=== PATIENT | male | born 1960 | race Caucasian/White ===

== ENCOUNTER → 2017-02-18 | Outpatient (CLI) | payer OTHER ==
[~2017-02-18] MED LIST: NA BICARBONATE 50 MEQ/50 ML VIAL ONE
== END ==
LOC: FIMAGING 13:35
PROC: 0W993ZZ Drainage of Right Pleural Cavity, Percutaneous Approach (ICD-10-PCS; principal; 2017-02-18)
DX: J90 Pleural effusion, not elsewhere classified (principal)

== ENCOUNTER → 2017-04-11 | Outpatient (CLI) | payer OTHER ==
[~2017-04-11] MED LIST changes: +LIDOCAINE 1% 300 MG/30 ML SDV ONE; -NA BICARBONATE 50 MEQ/50 ML VIAL ONE
== END ==
LOC: FIMAGING 13:48
PROC: 0W993ZZ Drainage of Right Pleural Cavity, Percutaneous Approach (ICD-10-PCS; principal; 2017-04-11)
DX: J90 Pleural effusion, not elsewhere classified (principal); Z85.72 Personal history of non-Hodgkin lymphomas

== ENCOUNTER → 2017-04-18 | Outpatient (CLI) | payer OTHER ==
[~2017-04-18] MED LIST changes: +GADOBUTROL 10 ML VIAL IVP ONE; -LIDOCAINE 1% 300 MG/30 ML SDV ONE
== END ==
LOC: FIMAGING 14:25
DX: M40.204 Unspecified kyphosis, thoracic region (principal); G62.9 Polyneuropathy, unspecified; C85.90 Non-Hodgkin lymphoma, unspecified, unspecified site; J90 Pleural effusion, not elsewhere classified
CPT/HCPCS: A9585

== ENCOUNTER → 2017-04-26 | Outpatient (CLI) | payer OTHER | LOC: FIMAGING 13:40 | PROC: 0W993ZZ Drainage of Right Pleural Cavity, Percutaneous Approach (ICD-10-PCS; principal; 2017-04-26) | DX: J90 Pleural effusion, not elsewhere classified (principal) ==

== ENCOUNTER → 2017-05-17 | Outpatient (CLI) | payer OTHER ==
[~2017-05-17] MED LIST changes: -GADOBUTROL 10 ML VIAL IVP ONE; +LIDOCAINE 1% 300 MG/30 ML SDV ONE
== END ==
LOC: FIMAGING 10:34
PROC: 0W993ZZ Drainage of Right Pleural Cavity, Percutaneous Approach (ICD-10-PCS; principal; 2017-05-17)
DX: J90 Pleural effusion, not elsewhere classified (principal)

== ENCOUNTER → 2017-06-13 | Outpatient (CLI) | payer OTHER | LOC: FIMAGING 12:24 | PROC: 0W993ZZ Drainage of Right Pleural Cavity, Percutaneous Approach (ICD-10-PCS; principal; 2017-06-13) ==

== ENCOUNTER → 2017-08-22 | Outpatient (CLI) | payer OTHER ==
[2017-08-22 16:03] LABS: LD, PLEURAL FLUID 338 IU/L
== END ==
LOC: FIMAGING 11:52
PROC: 0W993ZX Drainage of Right Pleural Cavity, Percutaneous Approach, Diagnostic (ICD-10-PCS; principal; 2017-08-22)
DX: J90 Pleural effusion, not elsewhere classified (principal)

== ENCOUNTER 2017-09-10 10:04 | Observation (INO) | payer OTHER ==
--- NOTE | 2017-09-10 10:34 | EDPHY ---
HPI/HX/ROS/PE/MDM Narrative: CHIEF COMPLAINT: Constipation, abdominal discomfort HISTORY OF PRESENT ILLNESS: This patient is a 57 year old male with complex past medical history complaining of generalized abdominal pain and constipation worsening over the last few days, which has been chronic over the last two months. Three weeks ago , he was placed on new diuretic (Torsemide, formerly on Lasix) for pulmonary hypertension and congestive heart failure. 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 After one week of his new diuretic, he had a right heart catheterization and esophageal echocardiogram 08/19/17. He is also followed by [facility] every six months for evaluation of his pulmonary hypertension. He has pleural effusions and repeated thoracentesis procedures every few months to drain these. The patient has had difficulty with constipation since around Labor Day of this year. This past weekend, he felt particularly poorly. He tried Metamucil and Zaira-lax with no resolution of symptoms. Yesterday, he saw his primary care physician in [place] for abdominal discomfort and inability to urinate. CT at that time showed moderate amount of stool in the splenic fixture but no evidence of obstruction. He also visited his urologist, who drained 1000cc of urine and thought this may help relieve his constipation. He tried a suppository and Fleet enema with no relief. Provider at that time stated if these did not relieve symptoms, he should present to the emergency department for further evaluation. His most recent colonoscopy was around six years ago. Currently, he complains of generalized abdominal pain. He endorses nausea, though this is currently resolved. Endorses increased shortness of breath, feels this is related to his pleural effusion. He has not vomited. He denies fever, chills, chest pain, palpitations, vomiting, diarrhea, dysuria, headache, lightheadedness. He takes a daily aspirin but is not otherwise anticoagulated. He denies personal history of clotting disorders, DVTs, or pulmonary embolus. Of note, he began taking Prednisone 09/05/17. REVIEW OF SYSTEMS: Aside from elements discussed in the HPI, a comprehensive 10-point review of systems was reviewed and is negative. PAST MEDICAL HISTORY: 1. Lupus (diagnosed last week) 2. Congestive heart failure 3. Seizure disorder 4. Pulmonary hypertension (Generally on 3L home oxygen) 5. Neuropathic bladder 6. Transurethral incision of the prostate (TUIP) 7. 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 8. Splenectomy (History of Hodgkin's Lymphoma 22 years ago) 9. Cholecystectomy 10. Chronic hyponatremia (Usually around 120-122). SOCIAL HISTORY: Works at [employer]. . at bedside. Lives in [place]. VITAL SIGNS: Reviewed by me GENERAL: Well-developed, well-nourished, resting comfortably in no respiratory distress. HEENT: Atraumatic. Eyes: No icterus, no injection. Mouth: moist mucous membranes. No erythema or lesions. Neck: supple with no adenopathy. LUNGS: Diminished breath sounds in the right base. CARDIAC: S4 gallop. Regular rate and rhythm, no rubs or murmurs. ABDOMEN: Mildly tender, mildly distended. Soft. BACK: No CVA tenderness. EXTREMITIES: No trauma. No edema. Range of motion is normal throughout. NEURO: Alert and oriented, grossly nonfocal. SKIN: Warm and dry, no rash. PSYCHIATRIC: Normal mentation, no agitation. Portions of this note were transcribed by a medical center representative. I personally performed a history, physical exam, medical decision making, and confirmed accuracy of information the transcribed note. ED Course: 57 year old male presents with abdominal discomfort, constipation, and worsening pleural effusion symptoms. On exam, his abdomen is mildly tender and distended. There are diminished breath sounds in the right lung base. IV established. Plan for labs including CBC, BMP, Troponin, lipase, liver, and UA. Plan for EKG and chest x-ray. Chest x-ray shows moderate right pleural effusion, reaccumulated since 08/22/2017 , when the patient had his most recent thoracentesis. Patient's sodium is very low at 118. He is chronically hyponatremic but this is low for him. Plan to admit. Call was placed to IR to discuss thoracentesis. Dr. Gant is currently in a meeting. 12:30 Spoke with hospitalist service. Dr. Rousseau accepts admission for hyponatremia, pleural effusion, and constipation. MDM: Differential diagnoses for the patient's symptom complex was considered including but not limited to worsening congestive heart failure, fluid overload , constipation, bowel obstruction, impaction, neurogenic bladder, urinary retention, urinary tract infection. - Data Points Imaging Results: Imaging Impressions Chest X-Ray 09/10/17 11:23 Impression: Postoperative changes with a prior median sternotomy, cardiomegaly and pulmonary vascular congestion, a tiny posterior left pleural effusion, and a moderate right pleural effusion (which has reaccumulated since 08/22/2017, at which time the patient had a thoracentesis). Laboratory Results: Laboratory Results 09/10/17 10:36 09/10/17 10:36 09/10/17 09/10/17 09/10/17 12:21 10:36 10:36 WBC 6.39 10^3/uL 10^3/uL (3.80-9.50) RBC 3.04 10^6/uL L 10^6/uL (4.40-6.38) Hgb 10.1 g/dL L g/dL (13.7-17.5) Hct 27.2 % L % (40.0-51.0) MCV 89.5 fL fL (81.5-99.8) MCH 33.2 pg pg (27.9-34.1) MCHC 37.1 g/dL H g/dL (32.4-36.7) RDW 15.3 % H % (11.5-15.2) Plt Count 513 10^3/uL H 10^3/uL (150-400) MPV 8.9 fL fL (8.7-11.7) Neut % (Auto) 72.8 % % (39.3-74.2) Lymph % (Auto) 11.7 % L % (15.0-45.0) [place] % (Auto) 13.6 % H % (4.5-13.0) Eos % (Auto) 0.3 % L % (0.6-7.6) Baso % (Auto) 0.8 % % (0.3-1.7) Nucleat RBC Rel Count 1.6 % H % (0.0-0.2) Absolute Neuts (auto) 4.65 10^3/uL 10^3/uL (1.70-6.50) Absolute Lymphs (auto) 0.75 10^3/uL L 10^3/uL (1.00-3.00) Absolute Monos (auto) 0.87 10^3/uL H 10^3/uL (0.30-0.80) Absolute Eos (auto) 0.02 10^3/uL L 10^3/uL (0.03-0.40) Absolute Basos (auto) 0.05 10^3/uL 10^3/uL (0.02-0.10) Absolute Nucleated RBC 0.10 10^3/uL H 10^3/uL (0-0.01) Immature Gran % 0.8 % % (0.0-1.1) Immature Gran # 0.05 10^3/uL 10^3/uL (0.00-0.10) Platelet Estimate INCREASED H (ADEQ) Microcytic Cells 1+ H Spherocytes 1+ H Echinocytes 1+ H Smear Review By Pending Sodium 118 mEq/L L* mEq/L (134-144) Potassium 3.7 mEq/L mEq/L (3.5-5.2) Chloride 80 mEq/L L mEq/L (97-110) Carbon Dioxide 29 mEq/l mEq/l (22-31) Anion Gap 9 mEq/L mEq/L (8-16) BUN 14 mg/dL mg/dL (7-23) Creatinine 0.7 mg/dL mg/dL (0.7-1.3) Estimated GFR > 60 Glucose 96 mg/dL mg/dL (70-100) Calcium 8.8 mg/dL mg/dL (8.5-10.4) Total Bilirubin 0.5 mg/dL mg/dL (0.1-1.4) Conjugated Bilirubin 0.3 mg/dL mg/dL (0.0-0.5) Unconjugated Bilirubin 0.2 mg/dL mg/dL (0.0-1.1) AST 53 IU/L IU/L (17-59) ALT 74 IU/L H IU/L (21-72) Alkaline Phosphatase 235 IU/L H IU/L (38-126) Troponin I < 0.012 ng/mL ng/mL (0.000-0.034) Total Protein 6.5 g/dL g/dL (6.3-8.2) Albumin 3.7 g/dL g/dL (3.5-5.0) Lipase 35 IU/L IU/L (23-300) Urine Color YELLOW Urine Appearance CLEAR Urine pH 6.0 (5.0-7.5) Ur Specific [place] 1.015 (1.002-1.030) Urine Protein NEGATIVE (NEGATIVE) Urine Ketones TRACE H (NEGATIVE) Urine Blood 3+ H (NEGATIVE) Urine Nitrate NEGATIVE (NEGATIVE) Urine Bilirubin NEGATIVE (NEGATIVE) Urine Urobilinogen NEGATIVE EU EU (0.2-1.0) Ur Leukocyte Esterase TRACE H (NEGATIVE) Urine RBC 50-182 /hpf H /hpf (0-3) Urine WBC 25-50 /hpf H /hpf (0-3) Ur Epithelial Cells TRACE /lpf /lpf (NONE-1+) Urine Bacteria TRACE /hpf H /hpf (NONE SEEN) Urine Glucose NEGATIVE (NEGATIVE) General Time Seen by Provider: 09/10/17 10:33 Initial Vital Signs: Initial Vital Signs Temperature (C) 36.9 C 09/10/17 10:17 Heart Rate 83 09/10/17 10:17 Respiratory Rate 18 09/10/17 10:17 Blood Pressure 98/55 L 09/10/17 10:17 O2 Sat (%) 95 09/10/17 10:17 O2 Delivery Mode Nasal Cannula O2 (L/minute) 3 Allergies/Adverse Reactions: No Known Allergies Allergy (Unverified 09/10/17 10:12) Home Medications: Medication Instructions Recorded Alfuzosin HCl [Alfuzosin HCl ER] 10 mg PO HS 09/10/17 Ambrisentan [Letairis] 5 mg PO DAILY 09/10/17 Aspirin [Aspirin 325 mg (*)] 325 mg PO DAILY 09/10/17 Bisacodyl [Dulcolax] 10 mg RC DAILY PRN 09/10/17 Cyanocobalamin [Vitamin B12 (*)] 1,000 mcg PO DAILY 09/10/17 FLUTICASONE/SALMETEROL [ADVAIR HFA 2 puffs IH BID 09/10/17 230-21 MCG INHALER] FLUoxetine [Prozac 10 MG (*)] 10 mg PO DAILY 09/10/17 Folic Acid [Folic Acid 1 MG (*)] 1 mg PO DAILY 09/10/17 Gabapentin [Neurontin 100 MG (*)] 100 mg PO DAILY 09/10/17 Gabapentin [Neurontin 300 MG (*)] 300 mg PO HS 09/10/17 Levothyroxine [Synthroid 150 mcg 150 mcg PO DAILY06 09/10/17 (*)] Losartan Potassium [Cozaar 50 mg 100 mg PO HS 09/10/17 (*)] Metolazone 2.5 mg PO Q3D PRN 09/10/17 Omeprazole [Prilosec 20 mg] 20 mg PO DAILY 09/10/17 Phenytoin Sodium Extended 200 mg PO BID 09/10/17 [Dilantin (*)] Potassium Cl [Klor-Con 20 meq (*)] 20 meq PO BID 09/10/17 Pravastatin Sodium [Pravachol] 10 mg PO DAILY 09/10/17 Sildenafil Citrate [Revatio 20 MG 20 mg PO TIDMEAL 09/10/17 (*)] Torsemide [Demadex] 40 mg PO DAILY PRN 09/10/17 Zolpidem Tartrate [Ambien 5MG (*)] 5 - 10 mg PO HS PRN 09/10/17 amLODIPine BESYLATE [Norvasc 5 mg 5 mg PO DAILY 09/10/17 (*)] predniSONE [predniSONE] 30 mg PO DAILY 09/10/17 Departure - Departure Disposition: [facility] Inpatient Acute Clinical Impression: Hyponatremia, Pleural effusion, right Constipation Qualifiers: Constipation type: unspecified constipation type Qualified Code(s): K59.00 - Constipation, unspecified Condition: Fair Report Scribed for: Sloane Osorio Report Scribed by: Kell Rudd Date of Report: 09/10/17 Time of Report: 10:34
[2017-09-10 11:34] LABS: % IMMATURE GRANULYOCYTES 0.8 % (0.0-1.1); ABSOLUTE IMMATURE GRANULOCYTES 0.05 10^3/uL (0.00-0.10); ADD DIFF? NO; ADD MORPH? YES; ADD SCAN? NO; ATYPICAL LYMPHOCYTE FLAG 10 (0-99); FRAGMENT RBC FLAG 0 (0-99); HEMATOCRIT 27.2 % (40.0-51.0); HEMOGLOBIN 10.1 g/dL (13.7-17.5); LEFT SHIFT FLG 0 (0-99); LIPEMIA HEMOLYSIS FLAG 90 (0-99); MEAN CELL HEMOGLOBIN 33.2 pg (27.9-34.1); MEAN CELL HEMOGLOBIN CONCENTR. 37.1 g/dL (32.4-36.7); MEAN CELL VOLUME 89.5 fL (81.5-99.8); MEAN PLATELET VOLUME 8.9 fL (8.7-11.7); PLATELET CLUMPS FLAG 10 (0-99); PLATELET COUNT 513 10^3/uL (150-400); RED BLOOD CELL COUNT 3.04 10^6/uL (4.40-6.38); RED CELL DISTRIBUTION WIDTH 15.3 % (11.5-15.2)
[2017-09-10 11:36] LABS: ALANINE AMINOTRANSFERASE 74 IU/L (21-72); ALBUMIN 3.7 g/dL (3.5-5.0); ALKALINE PHOSPHATASE 235 IU/L (38-126); ANION GAP 9 mEq/L (8-16); ASPARTATE AMINOTRANSFERASE 53 IU/L (17-59); BILIRUBIN,TOTAL 0.5 mg/dL (0.1-1.4); BILIRUBIN-CONJUGATED 0.3 mg/dL (0.0-0.5); BILIRUBIN-UNCONJUGATED 0.2 mg/dL (0.0-1.1); CALCIUM 8.8 mg/dL (8.5-10.4); CARBON DIOXIDE 29 mEq/l (22-31); CHLORIDE 80 mEq/L (97-110); CREATININE 0.7 mg/dL (0.7-1.3); GLOMERULAR FILTRATION RATE > 60; GLUCOSE 96 mg/dL (70-100); POTASSIUM 3.7 mEq/L (3.5-5.2); TOTAL PROTEIN 6.5 g/dL (6.3-8.2)
[2017-09-10 11:39] LABS: NRBC-AUTO% 1.6 % (0.0-0.2); SODIUM 118 mEq/L (134-144)
--- NOTE | 2017-09-10 11:42 | CPEKG ---
Heart Rate: 79 RR Interval: 759 P-R Interval: 226 QRSD Interval: 96 QT Interval: 408 QTC Interval: 468 P [place]: 86 QRS [place]: 44 T Wave [place]: 59 EKG Severity - ABNORMAL ECG - EKG Impression: SINUS RHYTHM EKG Impression: FIRST DEGREE AV BLOCK EKG Impression: PROBABLE LEFT ATRIAL ABNORMALITY EKG Impression: LOW VOLTAGE IN FRONTAL LEADS Electronically Signed By: Sloane Osorio 10-Sep-2017 17:23:21
[2017-09-10 11:46] LABS: TROPONIN I < 0.012 ng/mL (0.000-0.034)
[2017-09-10 12:20] LABS: ECHINOCYTES 1+
[2017-09-10 12:24] LABS: MICROCYTES 1+; SPHEROCYTES 1+
[2017-09-10 12:27] LABS: PLATELET ESTIMATE INCREASED (ADEQ)
[2017-09-10 12:37] LABS: COLOR YELLOW; LEUKOCYTE ESTERASE,URINE TRACE (NEGATIVE); NITRITE,URINE NEGATIVE (NEGATIVE)
[2017-09-10 12:41] LABS: BACTERIA TRACE /hpf (NONE SEEN); RBC,URINE 50-182 /hpf (0-3); WBC,URINE 25-50 /hpf (0-3)
[2017-09-10] MEDS ORDERED: TORSEMIDE 20 MG TAB PO ONE (12:54)
[2017-09-10] MEDS ORDERED: MAGNESIUM CITRATE 300 ML BOTTLE PO ONE ×2 (13:22→14:51)
[2017-09-10] MEDS ORDERED: BISACODYL 10 MG SUPP PR PRN (14:52)
[2017-09-10] MEDS ORDERED: ZOLPIDEM TARTRATE 5 MG TAB PO PRN (14:52)
[2017-09-10] MEDS ORDERED: METOLAZONE 2.5 MG TAB PO PRN (14:52)
[2017-09-10] MEDS ORDERED: TORSEMIDE 20 MG TAB PO PRN (14:52)
[2017-09-10] MEDS ORDERED: ACETAMINOPHEN 325 MG TAB PO PRN (14:53)
[2017-09-10] MEDS ORDERED: ONDANSETRON 4 MG/2 ML VIAL IVP PRN (14:53)
[2017-09-10] MEDS ORDERED: ONDANSETRON DISINTEGRATING 4 MG TAB PO PRN (14:53)
--- NOTE | 2017-09-10 15:53 | GHP ---
[f rep st] HISTORY AND PHYSICAL DATE OF ADMISSION: 09/10/2017 HISTORY OF PRESENT ILLNESS: This patient is a very complex 57-year-old gentleman with a history of w hat sounds like pulmonary arterial hypertension, chronic recurrent right pleural effusion and chronic hyponatremia as well as other medical issues who presents with progressive constipation. He says he has not had a normal bowel movement in about 2-weeks. He has been eating poorly. He does take Metamucil, he drinks water, he drinks prune juice daily, does not take chronic narcotics. It s ounds like he works and he ambulates to and from his car and around the campus where he works at [employer], but he has really been struggling. He has had some nausea, but no vomiting. He has not had di arrhea. Has also noted some shortness of breath. He does have a chronic right pleural effusion. It was last drained here on the . He does get serial thoracenteses here. He has not had fever. He has not had confusion or difficulty with gait. REVIEW OF SYSTEMS: Complete 10-point Review of Systems conducted and negative except as noted in the HPI. PAST MEDICAL HISTORY: 1. Hodgkin's lymphoma in 1994 treated with splenectomy, chemotherapy and mediastinal irradiation. 2. 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 3. What sounds like pulmonary arterial hypertension. He had a recent right and left heart catheteri zation. With exercise, his pulmonary artery pressures went up into the 90s. The restings were in th e 20s. The median was in the 60s. There is no comment on a wedge pressure. 4. History of midline sternotomy with no bypass or valve surgery, just a pericardiectomy. 5. Recent diagnosis of lupus as a potential cause of his pulmonary arterial hypertension. He had an elevated anti-dsDNA though it was in the indeterminate range. His other tests were somewhat unremar kable. This was a diagnosis made by Dr. Pedroza. 6. Constipation. 7. Urinary retention. 8. Seizure disorder. 9. Recurrent pleural effusion. 10. Constipation. 11. Neuropathy. 12. Reactive airway disease. SOCIAL HISTORY: No tobacco, no alcohol. Lives in [place]. 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 ALLERGIES: No known drug allergies. HOME MEDICATIONS: 1. Alfuzosin, which is an alpha sanaz. 2. Ambrisentan, which is a prostaglandin inhibitor for pulmonary hypertension. 3. Amlodipine. 4. Aspirin. 5. Bisacodyl. 6. B12. 7. Fluoxetine. 8. Advair. 9. Folic acid. 10. Gabapentin. 11. Levothyroxine. 12. Losartan. 13. Metolazone. 14. Omeprazole. 15. Phenytoin. 16. Potassium. 17. Pravastatin. 18. Prednisone. 19. Sildenafil. 20. Torsemide. 21. Ambien. FAMILY HISTORY: Notable for cancer. PHYSICAL EXAMINATION: VITAL SIGNS: Temp 36.9, blood pressure 98/55, pulse 83, breathing 18 times a minute, 95% on 3 L. GENERAL: No acute distress. Lying flat. HEENT: Sclerae anicteric. Oropharyn x clear. Mucous membranes are moist. NECK: Supple. No lymphadenopathy or JVD. LUNGS: Decreased breath sounds on the right, otherwise, clear to auscultation without wheezing. Good air movement. H EART: S1 and S2. There is a systolic murmur heard throughout the precordium. ABDOMEN: Soft. Ther e is no rebound or guarding. It is somewhat distended. LOWER EXTREMITIES: Show 2+ edema bilaterall y. Calves nontender. SKIN: Without rash. NEUROLOGIC EXAM: Nonfocal. LABS: His white count 6.3, hematocrit 27, platelets 513, all baseline. Sodium is 118, potassium 3.7 , chloride 80, bicarb 29, BUN 14, creatinine 0.7. LFTs show an ALT of 74, alkaline phosphatase of 23 5, is chronically elevated. Troponin less than 0.012. Lipase is 35. UA is negative. Anti-dsDNA is as reported. EKG interpreted by me shows sinus at 79 with normal axis and intervals. No ST or T-wave changes. Chest x-ray, interpreted by me, shows large right pericardial effusion with evidence of midline marsh otomy. I have discussed the case Dr. Sloane Osorio. ASSESSMENT AND PLAN: Complex 57-year-old gentleman who presents with constipation, right pleural eff usion, hyponatremia. 1. Hyponatremia. The patient's sodium is largely near his baseline. He has no trivial symptoms. T his is complex hyponatremia and is hemodynamically mediated on the basis of his pulmonary hypertensio n. He does take diuretics. At this point in time, I feel like attempting to correct to a normal sod ium would likely cause more harm than good. I will go ahead and follow this daily. Certainly, if it begins to trend down or has symptoms, will discuss management with Nephrology. There is not an sadiq cation for 3% normal saline. Again, the patient is hypovolemic. 2. Pleural effusion. I have ordered a thoracentesis. I will hold his low-molecular heparin until a fterwards. He has a history of normal coags. 3. Constipation. Simply, this is somewhat refractory. I have written for mag citrate and MiraLAX, as well as a Fleet's enema. 4. Pulmonary hypertension. We will continue his medications as prescribed. 5. Pharmacologic prophylaxis indicated, will start following thoracentesis. 6. History of Hodgkin's lymphoma. We will follow. CBC is normal. DISPOSITION: Inpatient status. /[id number]/MODL
[2017-09-10 16:05] LABS: INR 1.09 (0.83-1.16)
[2017-09-10 16:06] LABS: APTT 27.9 SEC (23.0-38.0)
[2017-09-10] MEDS ORDERED: MAGNESIUM CITRATE 300 ML BOTTLE ONE (17:28)
[2017-09-10] MEDS: POLYETHYLENE GLYCOL 3350 17 GM PKT PO SCH ×3 (17:31→21:57)
[2017-09-10] MEDS: SILDENAFIL CITRATE 20 MG TAB PO SCH (18:36)
[2017-09-10] MEDS ORDERED: MAGNESIUM HYDROXIDE 30 ML UDCUP PO PRN (20:37)
[2017-09-10] MEDS ORDERED: GABAPENTIN 300 MG CAP PO SCH (21:00)
[2017-09-10] MEDS ORDERED: LOSARTAN POTASSIUM 50 MG TAB PO SCH (21:00)
[2017-09-10] MEDS: Fluticasone/Salmeterol [Advair Hfa 230-21 Mcg Inhaler] IH SCH (21:15)
[2017-09-10] MEDS: PHENYTOIN SODIUM EXTENDED 100 MG CAP PO SCH (21:57)
[2017-09-10] MEDS: POTASSIUM CL 20 MEQ TAB PO SCH (21:57)
[2017-09-10] MEDS: METOCLOPRAMIDE 10 MG/2 ML VIAL IVP SCH (21:58)
[2017-09-10] MEDS ORDERED: PANTOPRAZOLE SODIUM 40 MG TAB PO ONE (22:04)
[2017-09-10] MEDS: PANTOPRAZOLE SODIUM 40 MG TAB PO SCH (22:05)
[2017-09-11] MEDS: METOCLOPRAMIDE 10 MG/2 ML VIAL IVP SCH ×2 (04:08→09:23)
[2017-09-11 04:22] VITALS: RESP 16
[2017-09-11 04:35] LABS: % IMMATURE GRANULYOCYTES 0.6 % (0.0-1.1); ABSOLUTE IMMATURE GRANULOCYTES 0.04 10^3/uL (0.00-0.10); ADD DIFF? NO; ADD MORPH? YES; ADD SCAN? NO; ATYPICAL LYMPHOCYTE FLAG 10 (0-99); FRAGMENT RBC FLAG 0 (0-99); HEMOGLOBIN 10.1 g/dL (13.7-17.5); LEFT SHIFT FLG 0 (0-99); LIPEMIA HEMOLYSIS FLAG 90 (0-99); MEAN CELL HEMOGLOBIN 33.6 pg (27.9-34.1); MEAN CELL HEMOGLOBIN CONCENTR. 37.4 g/dL (32.4-36.7); MEAN CELL VOLUME 89.7 fL (81.5-99.8); MEAN PLATELET VOLUME 8.4 fL (8.7-11.7); PLATELET CLUMPS FLAG 10 (0-99); PLATELET COUNT 488 10^3/uL (150-400); RED BLOOD CELL COUNT 3.01 10^6/uL (4.40-6.38); RED CELL DISTRIBUTION WIDTH 15.2 % (11.5-15.2)
[2017-09-11 04:48] LABS: NRBC-AUTO% 1.6 % (0.0-0.2)
[2017-09-11 04:54] LABS: ANION GAP 6 mEq/L (8-16); CALCIUM 8.8 mg/dL (8.5-10.4); CARBON DIOXIDE 31 mEq/l (22-31); CHLORIDE 84 mEq/L (97-110); CREATININE 0.6 mg/dL (0.7-1.3); GLOMERULAR FILTRATION RATE > 60; GLUCOSE 99 mg/dL (70-100); POTASSIUM 3.9 mEq/L (3.5-5.2); SODIUM 121 mEq/L (134-144)
[2017-09-11 05:20] LABS: ECHINOCYTES 1+; MICROCYTES 1+; PLATELET ESTIMATE ADEQUATE (ADEQ); SPHEROCYTES 1+
[2017-09-11] MEDS ORDERED: LEVOTHYROXINE 150 MCG TAB PO SCH (06:00)
[2017-09-11 08:02] VITALS: BP 101/63; PULSE 81; TEMP 98.6; O2SAT 100
[2017-09-11] MEDS ORDERED: FLUoxetine 10 MG CAP PO SCH (09:00)
[2017-09-11] MEDS ORDERED: ASPIRIN 325 MG TAB PO SCH (09:00)
[2017-09-11] MEDS ORDERED: AMBRISENTAN 5 MG PO SCH (09:00)
[2017-09-11] MEDS ORDERED: CYANO/VITAMIN B12 1000 MCG TAB PO SCH (09:00)
[2017-09-11] MEDS ORDERED: FOLIC ACID 1 MG TAB PO SCH (09:00)
[2017-09-11] MEDS ORDERED: GABAPENTIN 100 MG CAP PO SCH (09:00)
[2017-09-11] MEDS ORDERED: predniSONE 10 MG TAB PO SCH (09:00)
[2017-09-11] MEDS ORDERED: amLODIPine BESYLATE 5 MG TAB PO SCH (09:00)
[2017-09-11] MEDS ORDERED: PRAVASTATIN SODIUM 10 MG TAB PO SCH (09:00)
[2017-09-11] MEDS: PANTOPRAZOLE SODIUM 40 MG TAB PO SCH (09:16)
[2017-09-11] MEDS: POTASSIUM CL 20 MEQ TAB PO SCH (09:16)
[2017-09-11] MEDS: SILDENAFIL CITRATE 20 MG TAB PO SCH ×2 (09:17→11:45)
[2017-09-11] MEDS: PHENYTOIN SODIUM EXTENDED 100 MG CAP PO SCH (09:18)
[2017-09-11] MEDS: Fluticasone/Salmeterol [Advair Hfa 230-21 Mcg Inhaler] IH SCH (09:23)
[2017-09-11] MEDS ORDERED: LIDOCAINE 1% 300 MG/30 ML SDV ONE (09:44)
--- NOTE | 2017-09-11 10:47 | PDMN ---
Medical Necessity Medical necessity: Patient meets INPT criteria per physician note and MCG Systemic or Infectious Condition GRG (hyponatremia/Na 118; hx Hodgkins's lymphoma w/splenecomy, chemo and mediastinal irradiation; hx of peridardiectomy d/t restrictive pericarditis; hx pulmonary artery HTN and chronic R pleural effusion which has required thoracentesis in the past; progressive constipation ; anticipated LOS > 2 midnights for ongoing care and evaluation.)
--- NOTE | 2017-09-11 11:00 | ASMTCMCOM ---
CM Note CM Note Notes: Patient admitted for hyponatremia and constipation. Discussed with RN: he has a complex medical history and takes many medications but seems to be well-connected to his healthcare providers. Lives in [place] with his and works at . Is independent in ADLs. No therapies have been ordered, and no d/c needs are anticipated. CM available if needs change. Date Signed: 09/11/2017 10:59 AM Electronically Signed By:Shanel Angel RN
--- NOTE | 2017-09-11 13:43 | HOSPPROG ---
Hospitalist Progress Note Assessment/Plan: 57 yo M complex medical history here w pleural effusion and constipation both resolved low sodium chronic and stable home today > 30 minutes on dc Subjective: pleural effusion drained. moved bowels Objective: Vital Signs Temp Pulse Resp BP Pulse Ox 37.0 C 81 16 101/63 100 09/11/17 08:00 09/11/17 08:00 09/11/17 08:00 09/11/17 08:00 09/11/17 08:00 Laboratory Results 09/11/17 04:30 09/11/17 04:30 09/10/17 09/11/17 09/12/17 05:59 05:59 05:59 Intake Total 1000 Output Total 750 2100 Balance 250 -2100 PT 14.0 SEC (12.0-15.0) 09/10/17 15:30 INR 1.09 (0.83-1.16) 09/10/17 15:30 - Physical Exam Constitutional: no apparent distress, appears nourished Eyes: PERRL, anicteric sclera Ears, Nose, Mouth, Throat: moist mucous membranes, hearing normal Cardiovascular: regular rate and rhythym, no murmur, rub, or gallop Respiratory: no respiratory distress, no rales or rhonchi Gastrointestinal: normoactive bowel sounds, soft, non-tender abdomen Genitourinary: no bladder fullness, No west in urethra Skin: warm, normal color Musculoskeletal: full muscle strength, no muscle tenderness Neurologic: AAOx3 ICD10 Worksheet Patient Problems: Problems Problem Status Onset Constipation Acute Hyponatremia Acute Pleural effusion, right Acute
--- NOTE | 2017-09-11 16:18 | GDS ---
[f rep st] DISCHARGE SUMMARY DISCHARGE DIAGNOSES: 1. Recurrent chronic right pleural effusion status post thoracentesis without complication. 2. Constipation, now resolved. 3. Hypervolemic hyponatremia, stable. 4. Pulmonary arterial hypertension. 5. History of pericardiectomy secondary to restrictive pericarditis. 6. Hodgkin lymphoma in 1994. 7. Lupus, felt causative of his pulmonary arterial hypertension. 8. Seizure disorder. 9. Urinary retention. 10. Neuropathy. 11. Reactive airway disease. 12. Hypertension. HOSPITAL COURSE: Please see admission history and physical by Dr. Jaxson Rousseau. The patient prese nted with ongoing constipation that was not resolved with home remedies including Metamucil and Nuvia AX. He received Mag citrate and had ample bowel movements and feels unrelieved. His presenting sodium was 118. He had no neurologic symptoms attributable to this. Review of his so diums in our institution revealed that his baseline is in fact about 122. It is 121 today. He is hy pervolemic, has pulmonary hypertension, takes diuretics. This is felt to be hemodynamically mediated and I feel an attempt to normalize his sodium would likely result in more harm than benefit. He is followed carefully as an outpatient. Regarding his pleural effusion, he has recurrent right pleural effusion going on many years and recei ves serial thoracenteses here. His last 1 was a few weeks ago. He received a thoracentesis without complication. A post thoracentesis chest x-ray showed no pleural effusion. He is discharged home. He is given a prescription for Mag citrate. /[id number]/MODL
== END 2017-09-11 14:35 | disposition home or self-care (01) ==
LOC: INTOOBSV 12:35 → F2N 13:55
PROVIDERS: ADMIT Internal Medicine; ATTEND Internal Medicine
PROC: 0W993ZZ Drainage of Right Pleural Cavity, Percutaneous Approach (ICD-10-PCS; principal; 2017-09-10)
DX: J90 Pleural effusion, not elsewhere classified (principal); K59.00 Constipation, unspecified; E87.1 Hypo-osmolality and hyponatremia; I27.20 Pulmonary hypertension, unspecified; N31.9 Neuromuscular dysfunction of bladder, unspecified; M32.9 Systemic lupus erythematosus, unspecified; J45.909 Unspecified asthma, uncomplicated; G40.909 Epilepsy, unspecified, not intractable, without status epilepticus; R33.9 Retention of urine, unspecified; G62.9 Polyneuropathy, unspecified; I11.0 Hypertensive heart disease with heart failure; I50.9 Heart failure, unspecified; Z85.71 Personal history of Hodgkin lymphoma; Z79.52 Long term (current) use of systemic steroids
CPT/HCPCS: G0378; J2765

== ENCOUNTER → 2017-09-26 | Outpatient (CLI) | payer OTHER | LOC: FIMAGING 11:49 | PROVIDERS: ATTEND Internal Medicine Cardiovascular Disease | PROC: 0W993ZZ Drainage of Right Pleural Cavity, Percutaneous Approach (ICD-10-PCS; principal; 2017-09-26) | DX: J90 Pleural effusion, not elsewhere classified (principal) ==